=== PATIENT | male | born 1945 | race Caucasian/White ===

== ENCOUNTER 2017-09-30 21:38 | Inpatient (IN) | payer OTHER ==
[~2017-09-30] VITALS: Ht 175.3 cm; Wt 98.4 kg
--- NOTE | ~2017-09-30 | H ---
[facility] [place] [place] [address] HISTORY AND PHYSICAL Name: ABBIE MATTSON Room #: 426-P ADM IN M.R.#: [id number] Admission: 10/01/17 Attend Phys: Abilio Phan MD Discharge: Date of : 49 Report #: [id number] THIS REPORT FOR: //name// CC: Abbie Martínez DATE OF SERVICE: 10/01/2017 HISTORY OF PRESENT ILLNESS: The patient is a 72-year-old male who had undergone a Rezum procedure last week. He had a little bit of bleeding, had gone back to the office and states he had a catheter placed and his urine was noted to be clear. Then, this evening he started having bleeding and then his catheter would not drain. He came to the Emergency Room where they placed 3 different catheters all of which had clotted off and the Emergency Room doctor stated he was having pure blood from his catheter. He had not had any flank pain, fever or chills. MEDICATIONS: Pepcid, Remeron, Mevacor, Keppra. ALLERGIES: LISINOPRIL. FAMILY HISTORY, SOCIAL HISTORY, REVIEW OF SYSTEMS: Per the chart. PHYSICAL EXAMINATION: His abdomen is soft. There is no flank tenderness. He has a Hernandez catheter in place with a small amount of blood at the meatus. LABORATORY DATA: His labs are pending. IMPRESSION AND PLAN: Gross hematuria/clot retention. The patient is going to be taken to the OR for cystoscopy, evacuation of blood clots and fulguration of bladder and/or prostate. By: [id number] Bob Martínez MD /nt
--- NOTE | ~2017-09-30 | O ---
[facility] [place] [address] OPERATIVE REPORT Name: TWILAABBIE Room #: 426-P ADM IN M.R.#: [id number] Admission: 10/01/17 Attend Phys: Abilio Phan MD Discharge: Date of : 49 Report #: [id number] THIS REPORT FOR: //name// CC: Abbie Martínez DATE OF SERVICE: 10/01/2017 PREOPERATIVE DIAGNOSIS: Gross hematuria and clot retention. POSTOPERATIVE DIAGNOSIS: Gross hematuria and clot retention. PROCEDURE: Cystoscopy, evacuation of blood clots and fulguration of prostate. SURGEON: Bob Martínez MD ANESTHESIA: General. OPERATIVE SUMMARY: The patient was brought to the operating room and administered a general anesthesia. The patient was then placed in the lithotomy position. The patient's Hernandez catheter was removed. His abdomen, perineum and penis were prepped and draped in the usual fashion. The patient received 2 g IV Ancef preoperatively. The 24-Pashto resectoscope sheath was then placed into the bladder. 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 He is also noted to have bleeding coming from the prostate at the bladder neck. A resectoscope was placed into the bladder where a large amount of clot was noted. It was irrigated clear with approximately about 1 cup of clot. Using a rollerball, the bladder neck and the areas in the prostate were fulgurated. There was excellent hemostasis. No other active bleeding was seen. No active bleeding was seen from the bladder. A 24-Pashto 3-way catheter was placed at the end of the procedure. The urine was noted to be clear. The patient tolerated the procedure well and left the operating room in stable condition. By: [id number] Bob Martínez MD /nt
[~2017-09-30 21:38] MED LIST: ADULT LOW DOSE81 MG; AMBIEN 5 MG TABL5 M1; ATIVAN1 MG; FAMOTIDINE 20 M20 MG PO; HYZAAR 100-12.1 EACH; KEPPRA 500 MG500 M1 PO; MELATONIN1 MG PO; MEVACOR10 MG PO; REMERON15 M1 PO
[2017-09-30 21:43] VITALS: BP 152/80
[2017-10-01 03:12] VITALS: BP 116/69
[2017-10-01 04:09] VITALS: BP 137/72
[2017-10-01 07:15] VITALS: BP 121/67
[2017-10-01 10:49] LABS: HEMATOCRIT 31.7 % (42.0-52.0); HEMOGLOBIN 11.1 gm/dL (14.0-18.0); MCH 33.1 pg (26.0-34.0); MCHC 34.9 g/dL (28.0-37.0); MCV 94.8 fL (80.0-100.0); RBC 3.35 mil/uL (4.50-6.00); WBC 8.5 thou/uL (4.0-11.0)
[2017-10-01 11:18] LABS: ALBUMIN 3.1 g/dL (3.4-5.0); CALCIUM 8.4 mg/dL (8.5-10.1); CREATININE 0.7 mg/dL (0.7-1.3); POTASSIUM 3.2 mmol/L (3.5-5.1); TOTAL BILIRUBIN 0.5 mg/dL (<0.1-1.0); TOTAL PROTEIN 6.6 g/dL (6.4-8.2)
[2017-10-01] MEDS ORDERED: FLOMAX0.4 MG PO (11:32)
[2017-10-01 11:56] VITALS: BP 121/67
[2017-10-01] MEDS ORDERED: SENNA8.6 MG PO (17:05)
[2017-10-01] MEDS ORDERED: HYDROCODONE-AP1 EAC6 PO (17:05)
== END 2017-10-01 12:30 | disposition home or self-care (01) | DRG 666 ==
LOC: ER 21:38 → 4E 10-01 00:03 → EROBS 10-01 00:03 → TBACV 10-01 02:52 → 4E 10-01 03:16
PROVIDERS: Nurse Practitioner Family
PROC: 0T9B8ZZ Drainage of Bladder, Via Natural or Artificial Opening Endoscopic (ICD-10-PCS; principal; 2017-10-01)
PROC: 0V508ZZ Destruction of Prostate, Via Natural or Artificial Opening Endoscopic (ICD-10-PCS; 2017-10-01)
DX: R31.0 Gross hematuria (principal); E87.1 Hypo-osmolality and hyponatremia; I10 Essential (primary) hypertension; E78.5 Hyperlipidemia, unspecified; R56.9 Unspecified convulsions; G47.00 Insomnia, unspecified; F32.9 Major depressive disorder, single episode, unspecified; F41.9 Anxiety disorder, unspecified; Z79.899 Other long term (current) drug therapy; Z88.8 Allergy status to other drugs, medicaments and biological substances; Z87.891 Personal history of nicotine dependence
CPT/HCPCS: 10183; 50101; 50454; 50455; 50949; 54104; 56815; 62110; 62900; 70005

== ENCOUNTER 2019-07-04 15:05 | Inpatient (IN) | payer OTHER ==
[~2019-07-04] VITALS: Ht 175.3 cm; Wt 99.8 kg
[~2019-07-04 15:05] MED LIST changes: +FLOMAX0.4 MG PO; +HYDROCODONE-AP1 EAC6 PO; +SENNA8.6 MG PO
[2019-07-04 15:11] VITALS: BP 118/64
[2019-07-04 16:05] LABS: HEMOGLOBIN 6.5 gm/dL (14.0-18.0); MCV 92.3 fL (80.0-100.0)
[2019-07-04 16:07] LABS: MCHC 33.6 g/dL (28.0-37.0); PLATELET COUNT 101 thou/uL (150-400); RDW 17.7 % (10.5-14.5)
[2019-07-04 16:09] LABS: CALCIUM 9.3 mg/dL (8.5-10.1); CREATININE 1.1 mg/dL (0.7-1.3); POTASSIUM 4.4 mmol/L (3.5-5.1)
[2019-07-04 16:12] LABS: HEMATOCRIT 19.3 % (42.0-52.0)
[2019-07-04 16:16] LABS: ALBUMIN 3.6 g/dL (3.4-5.0); TOTAL BILIRUBIN 0.2 mg/dL (<0.1-1.0); TOTAL PROTEIN 8.1 g/dL (6.4-8.2)
[2019-07-04 16:19] LABS: APTT 25.2 Seconds (24.5-32.8); PROTIME 10.9 Seconds (9.3-11.4)
[2019-07-04 16:39] LABS: ABSOLUTE NEUTROPHILS 1.7 thou/uL (1.4-8.2); HYPOCHROMASIA 2+; METAMYELOCYTES 1 %; NUCLEATED RBCS 1 /100WBC; PLATELET ESTIMATE NORMAL
[2019-07-04 16:40] LABS: ANISOCYTOSIS 1+
[2019-07-04 16:43] LABS: % SATURATION 24 % (20-39); IRON 78 ug/dL (65-175); TIBC 321 ug/dL (250-450)
[2019-07-04 16:49] LABS: ABSOLUTE RETIC COUNT 0.046 10^6/uL; OBSERVED RETIC COUNT 2.17 % (0.6-2.6)
[2019-07-04 16:54] VITALS: BP 122/68
[2019-07-04 17:10] LABS: TSH 3.344 uIU/mL (0.358-3.740)
[2019-07-04 17:20] VITALS: BP 141/68
[2019-07-04 17:40] LABS: FOLIC ACID 40.5 ng/mL (8.6-58.9)
[2019-07-04 18:09] VITALS: BP 143/74
--- NOTE | 2019-07-04 18:11 | NUR ---
PATIENT ARRIVED AT THIS TIME ALERT XS 4. DIET ORDERED, PT NO PAIN OR RESP DISTRESS. VS HEIGHT AND WEIGHT IN CHART. ADMISSION EXCEPT SKIN ASSESSMENT COMPLETED.
[2019-07-04 20:36] VITALS: BP 122/76
[2019-07-04] MEDS ORDERED: COZAAR 25 MG TA25 M1 PO (23:20)
[2019-07-04] MEDS ORDERED: TRAZODONE HCL100 MG PO (23:26)
[2019-07-04] MEDS ORDERED: CARBAMAZEPINE200 M2 PO (23:28)
[2019-07-04] MEDS ORDERED: UNICOMPLEX M TA1 TA1 PO (23:30)
[2019-07-04] MEDS ORDERED: CELEXA20 MG PO (23:32)
[2019-07-05] VITALS (7 sets, daily range): BP systolic 120–150; BP diastolic 66–80
--- NOTE | 2019-07-05 01:05 | NUR ---
ASSESSMENT COMPLETED.PT DENIED PAIN,N/V SO FAR.UP ADLIB IN ROOM.PT SCHEDDULED FOR A BONE MARROW BIOPSY IN THE AM.PT RESTING COMFORTABLY ON HIS BED AT THIS TIME.CALL LIGHT WITHIN REACH.
--- NOTE | 2019-07-05 09:13 | NUR ---
Assumed pt care at 7am.Pt in bed resting and wanted to know when he will be taking for bone marrow today.Rn told pt that radiology will call when it's time.Assessment completed.vss.pt reported allergy to ambien and it was dc'd per pharmacy order.Pt left at 9am for bone marrow biopsy in radiology dept. Will continue to monitor.
--- NOTE | 2019-07-05 14:21 | NUR ---
PT ADMITTED RELATED TO BONE MARROW BIOPSY. CM REVIEWED CHART AND SPOKE WITH CARE TEAM. CM MET WITH PT AT BEDSIDE THIS DAY. PT IS A&O X4. CM ROLE INTRODCUED. PT INDICATED HE LIVES IN A HOUSE WITH HIS SPOUSE WITH 1 STEP TO ENTER AND A FLIGHT OF STEPS TO THE BASEMENT. 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 PT INDICATED HE HAD HH FOR A KNEE REPLACEMENT IN THE PAST BUT NOTHING SINCE. HE STATED HE PLAYED GOLF 5 DAYS AGO. PT INDICATED HE PLANS TO DC HOME TOMORROW WITH NO NEEDS. CM TO FOLLOW INDICATED WITH DC PLANNING.
--- NOTE | 2019-07-06 02:03 | NUR ---
ASSESSMENT COMPLETED.PT WAS STILL GETTING BLOOD AT START OF SHIFT,TRANSFUSION COMPLETED AND DOCUMENTED.PT UP ADLIB IN ROOM.PT LOOKING FORWARD TO BE DC'D TODAY.CALL LIGHT WITHIN REACH.
[2019-07-06 05:24] LABS: HEMATOCRIT 20.4 % (42.0-52.0); HEMOGLOBIN 7.1 gm/dL (14.0-18.0); MCH 31.6 pg (26.0-34.0); MCHC 34.6 g/dL (28.0-37.0); MCV 91.4 fL (80.0-100.0); RBC 2.24 mil/uL (4.50-6.00); RDW 17.4 % (10.5-14.5); WBC 2.8 thou/uL (4.0-11.0)
[2019-07-06 07:08] VITALS: BP 112/68
[2019-07-06 14:48] VITALS: BP 112/68
--- NOTE | 2019-07-06 15:11 | NUR ---
Assumed care of pt at 0700. Pt a&ox4. Up ad garth. Anxious to get discharged. Hospitalist doctor and oncology/hematology doctor have rounded on the patient. Ok to discharge home. Call light within reach.
--- NOTE | 2019-07-09 10:07 | PATH ---
[facility] [place] [address] [address] [place] [address] PATHOLOGY RPT PROCEDURE Name: ABBIE MATTSON Room #: 432-P [place] IN M.R.#: [id number] ������������������ Admission: 07/04/19 ������������������ Date of : 49 Discharge: 07/06/19 Report #: [id number] Path Case #: [id number] [facility] Accession Number: [id number] . 01 Material submitted: . body - PERIPHERAL BLOOD . 02 Diagnosis: Special studies report received from [facility], [address] [place] [address], [address], [place], [address], on case [id number], labeled with their number [id number], dated 07/06/2019. . Flow Cytometry: Hematologic Neoplasia Assessment . Clinical History Anemia and thrombocytopenia . Indication for Study Evaluation for hematolymphoid neoplasia . Specimen Peripheral Blood . Viability 88% (7AAD exclusion) . Interpretation Peripheral Blood: - Monotypic (clonal) B-cell population detected (10% of leukocytes) (see comments) . Comments The immunophenotypic features of the abnormal B-cells are non-specific. Similar results may represent marginal zone lymphoma (splenic or otherwise), splenic diffuse red pulp small B-cell lymphoma, or lymphoplasmacytic lymphoma, but follicular lymphoma may occasionally appear CD10- and mantle cell lymphoma and atypical/immunophenotypic variants of chronic lymphocytic leukemia/small lymphocytic lymphoma (B-CLL/SLL) may infrequently appear CD5- by flow cytometry. Correlation with all available clinical, laboratory, and morphologic data is recommended. If needed, FISH testing (IGH/BCL2, CCND1/IGH, MALT, CLL panel) and MYD88 testing are available. . Populations Analyzed Myeloid Blasts: 0.3% No significant blast population detected Abnormal B-cells: 10% Scatter properties compatible with small to intermediate cell size, cells characterized as: CD45+, CD5-, CD10-, CD11b-, CD11c+, CD19+, [facility] [address] [place] [address] PATHOLOGY RPT PROCEDURE Name: ABBIE MATTSON Room #: 432-P DIS IN M.R.#: [id number] ������������������ Admission: 07/04/19 ������������������ Date of : 49 Discharge: 07/06/19 Report #: [id number] Path Case #: [id number] CD22+, CD20+, CD23-, CD38-, CD103-, FMC7-, HLA-DR+, sIg kappa+ Remaining 29% B-cells: 0.0%, polytypic/polyclonal sIg light Lymphocytes: chain pattern T-cells: no significant abnormalities of the markers tested CD4+ T-cells: 16.6% (including 0.1% CD57+ cells) CD8+ T-cells: 5.8% (including 0.4% CD57+ cells) CD4:CD8: 2.9 NK cells: 5.1% Neutrophils: 44% No significant abnormalities of the markers tested Monocytes: 13% No significant abnormalities of the markers tested Eosinophils: 2% No relative increase Basophils: 0.4% No relative increase CD45 Negative 1% No significant reactivity with the markers tested Events/Debris: (may represent unlysed red blood cells, erythroid precursors, platelets, debris, etc.) . Morphologic Evaluation A slide was reviewed for air quality specialist purposes only. . Specimen Description Total Cell Yield: 1.74 X 10 and 6 . Reagent(s) Used CD2, CD3, CD4, CD5, CD7, CD8, CD10, CD11b, CD11c, CD13, CD14, CD16, CD19, CD20, CD22, CD23, CD33, CD34, CD38, CD45, CD56, CD57, CD64, CD103, CD117, FMC-7, HLA-DR, kappa, lambda . at [facility]. Marc Clinton MD Pathologist . . Intended Use Flow cytometry is optimally used to immunophenotypically characterize abnormal populations when they are detected. Negative flow cytometry results do not exclude lymphoma or neoplasia. Possible false negative flow cytometry results may occur in, but are not limited to, the following: neoplastic cells in Hodgkin lymphoma are not typically adequately represented by routine clinical flow cytometry; neoplastic cells may be lost or inadequately represented due to degeneration, sample processing, sampling artifact, or patchy involvement; plasma cells are typically underrepresented by flow cytometry; immature cells/blasts may be underrepresented due to hemodilution; myeloproliferative disorders and low [address] [address] PATHOLOGY RPT PROCEDURE Name: TWILAABBIE TAVERA Room #: 432-P DIS IN M.R.#: [id number] ������������������ Admission: 07/04/19 ������������������ Date of : 49 Discharge: 07/06/19 Report #: [id number] Path Case #: [id number] grade myelodysplasia may not have immunophenotypic abnormalities or increased blasts. Correlation with all available clinical, laboratory, and morphologic data is always necessary to assess for the possibility of false negative flow cytometry results and to establish a diagnosis. Each marker in this analysis was used to assess for potential antigenic abnormalities or to evaluate detected abnormalities. . Disclaimer(s) This test was performed at [facility]. at [address], [place], [address] - Chair: Servando Leyva MD. [facility] is a business unit of [employer] a wholly-owned subsidiary of [employer]. . Any image or images that accompany this report are primary care sales representative images only and should not be used to render a diagnosis. . This test was developed and its performance characteristics determined by [facility]. It has not been cleared or approved by the Food and Drug Administration (FDA). The FDA has determined that such clearance or approval is not necessary. . For inquiries, the physician may contact Lab: [phone] . A complete copy of the report is on file. . Professional services performed by [facility]. at [address], [place] [address]. Technical services performed by [facility]. at [address], [place] [address]. . (CLW:ambel 07/08/2019) . [place] 07/08/2019 1036 Local . 02 Electronically signed: . Kaylin Alvarez MD, Pathologist NPI- [id number] . 02 Pathologist provided ICD-10: D64.9, D69.6 . 02 CPT . 642441 Specimen Comment: A courtesy copy of this report has been sent to Specimen Comment: [phone], [phone]. [address] [address] PATHOLOGY RPT PROCEDURE Name: ABBIE MATTSON Room #: 432-P [place] IN M.R.#: [id number] ������������������ Admission: 07/04/19 ������������������ Date of : 49 Discharge: 07/06/19 Report #: [id number] Path Case #: [id number] Specimen Comment: Report sent to / DR MAHMOOD Performed at: 01 [facility] [address] [id number] MD Goldy Agustin MD Phone: [phone] Performed at: 02 [facility] [address] [id number] MD Farhan Méndez MD Phone: [phone]
== END 2019-07-06 15:00 | disposition home or self-care (01) | DRG 804 ==
LOC: ER 15:05 → 4E 16:36 → EROBS 16:36 → 4E 17:49
PROVIDERS: Emergency Medicine; Internal Medicine; ADMIT Hospitalist
PROC: 07DR3ZX Extraction of Iliac Bone Marrow, Percutaneous Approach, Diagnostic (ICD-10-PCS; principal; 2019-07-05)
PROC: 30233N1 Transfusion of Nonautologous Red Blood Cells into Peripheral Vein, Percutaneous Approach (ICD-10-PCS; principal; 2019-07-05)
PROC: 0QB33ZX Excision of Left Pelvic Bone, Percutaneous Approach, Diagnostic (ICD-10-PCS; 2019-07-05)
DX: D61.818 Other pancytopenia (principal); I10 Essential (primary) hypertension; E78.5 Hyperlipidemia, unspecified; F10.20 Alcohol dependence, uncomplicated; F32.9 Major depressive disorder, single episode, unspecified; F41.9 Anxiety disorder, unspecified; G47.00 Insomnia, unspecified; Z88.8 Allergy status to other drugs, medicaments and biological substances; Z87.891 Personal history of nicotine dependence; Z79.82 Long term (current) use of aspirin; Z79.899 Other long term (current) drug therapy
CPT/HCPCS: 10084